=== PATIENT | male | born 1945 | race Caucasian/White ===

== ENCOUNTER 2025-02-02 09:25 | Emergency (ER) | payer OTHER, MEDICARE ==
[~2025-02-02] VITALS: Ht 188 cm; Wt 108.0 kg
[2025-02-02 09:39] VITALS: BP 150/74
[2025-02-02 10:03] LABS: URINE BILIRUBIN - DIPSTICK Negative (NEGATIVE); URINE BLOOD DIPSTICK Moderate (NEGATIVE); URINE GLUCOSE - DIPSTICK Negative (NEGATIVE); URINE KETONE Negative (NEGATIVE); URINE LEUK ESTERASE Negative (NEGATIVE); URINE NITRITE - DIPSTICK Negative (Negative); URINE PH 6.5 (4.5-8.0); URINE PROTEIN - DIPSTICK Negative (NEG-TRACE)
[2025-02-02 10:05] LABS: URINE COLOR Yellow
[2025-02-02 10:18] LABS: URINE WBC 0-2 WBC/hpf (0-5)
[2025-02-02 10:19] LABS: URINE MUCUS FEW hpf (NONE-FEW)
[2025-02-02 11:30] VITALS: BP 143/68
[2025-02-02 12:00] VITALS: BP 141/70
[2025-02-02] MEDS ORDERED: CIPROFLOXACN500 MG PO (12:14)
[2025-02-02 12:38] VITALS: BP 141/70
== END 2025-02-02 12:38 | disposition home or self-care (01) | DRG 728 ==
LOC: ED 09:25
PROVIDERS: Family Medicine
DX: N45.1 Epididymitis (principal); K40.20 Bilateral inguinal hernia, without obstruction or gangrene, not specified as recurrent; R31.9 Hematuria, unspecified